=== PATIENT | male | born 1985 | race Two or more races ===

== ENCOUNTER 2016-12-17 16:35 | Emergency (ER) | payer SELFPAY ==
[~2016-12-17] VITALS: Ht 170.2 cm; Wt 77.1 kg
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
--- NOTE | 2016-12-17 17:12 | NUR ---
RADIOLOGY AT BEDSIDE FOR RT HAND XRAY.
--- NOTE | 2016-12-17 18:07 | NUR ---
DR RITTER BACK AT BEDSIDE TALKING TO PT ABOUT XRAY RESULT.
--- NOTE | 2016-12-17 18:28 | NUR ---
PT SPLINTED, IMAGING REPORT AND COPY PROVIDED. PT D/C IN STABLE CONDITION.
[2016-12-17 18:29] VITALS: BP 136/74
== END 2016-12-17 18:30 | disposition home or self-care (01) ==
LOC: ER 16:38
DX: S62.302A Unspecified fracture of third metacarpal bone, right hand, initial encounter for closed fracture (principal); X58.XXXA Exposure to other specified factors, initial encounter; Y93.89 Activity, other specified; Y92.89 Other specified places as the place of occurrence of the external cause; Y99.9 Unspecified external cause status
CPT/HCPCS: 29125; 73130; 99284; A4606; Z7610